=== PATIENT | female | born 1980 | race Caucasian/White ===

== ENCOUNTER 2017-04-27 18:48 | Inpatient (IN) | payer BC ==
[2017-04-27] MEDS ORDERED: Oxytocin in LR* 20 UNITS/1,000 ML BAG IVPB SCH (21:00)
[2017-04-27] MEDS ORDERED: Oxytocin in LR* 20 UNITS/1,000 ML BAG IVPB ONE (21:05)
[2017-04-27 21:11] LABS: ABS Basophils 0 10^3/ul (0-0.2); ABS Eosinophils 0 10^3/ul (0-0.6); ABS Lymphocytes 0.8 10^3/ul (1.0-4.8); ABS Monocytes 0.6 10^3/ul (0-0.8); ABS Neutrophils 5.6 10^3/ul (1.5-7.7); ABS Nucleated RBC 0 10^3/ul; Eosinophil % 0.5 % (0-6); Hematocrit 31 % (35-47); Hemoglobin 10.6 g/dl (12.0-16.0); Lymphocyte % 10.7 % (25-47); Mean Corpuscular HGB Conc 34 g/dl (31-36); Mean Corpuscular Hemoglobin 34 pg (27-31); Mean Corpuscular Volume 97 fL (80-97); Mean Platelet Volume 9 um3 (7.4-10.4); Nucleated Red Blood Cells % 0; Platelet Count 264 10^3/ul (150-450); Red Blood Count 3.16 10^6/ul (4.0-5.4); Red Cell Distribution Width 16 % (10.5-15)
[2017-04-27] MEDS ORDERED: Penicillin G Potassium IV* 5,000,000 UNITS in NS 0.9% 100 ML* 100 ML IVPB ONE (21:30)
[2017-04-27] MEDS ORDERED: MESALAMINE 500 MG PO SCH (23:45)
[2017-04-28] MEDS ORDERED: Penicillin G Potassium IV* 2,500,000 UNITS in NS 0.9% 100 ML* 100 ML IVPB SCH (01:30)
[2017-04-28] MEDS: MERCAPTOPURINE 50 MG PO SCH ×3 (04:07→20:59)
[2017-04-28] MEDS ORDERED: OBEPIDURAL* 250 ML EPIDURAL ONE (04:48)
[2017-04-28] MEDS ORDERED: Phenylephrine IV* 40 MCG/ML 10 ML SYRINGE IV PUSH PRN ×2 (05:53)
[2017-04-28] MEDS ORDERED: Famotidine TAB* 20 MG PO PRN (05:53)
[2017-04-28] MEDS ORDERED: EPHEDrine (Pressors)* 50 MG/ML VIAL IV PUSH PRN ×2 (05:53)
[2017-04-28] MEDS ORDERED: Sodium Citrate/Citric Acid* 15 ML UDC PO PRN (05:53)
[2017-04-28] MEDS ORDERED: OBEPIDURAL* 250 ML EPIDURAL SCH (06:00)
[2017-04-28] MEDS ORDERED: Dibucaine 1% 28.35 GM TUBE ONE (07:29)
[2017-04-28] MEDS ORDERED: Witch Hazel PAD* JAR ONE (07:29)
[2017-04-28] MEDS ORDERED: Methylergonovine INJ* 0.2 MG/ML 1ML AMP IM ONE (07:41)
[2017-04-28] MEDS ORDERED: Witch Hazel PAD* JAR TOPICAL PRN (07:41)
[2017-04-28] MEDS ORDERED: Ibuprofen TAB* 600 MG PO PRN (07:41)
[2017-04-28] MEDS ORDERED: Dibucaine 1% 28.35 GM TUBE PR PRN (07:41)
[2017-04-28] MEDS ORDERED: Methylergonovine INJ* 0.2 MG/ML 1ML AMP ONE (07:58)
[2017-04-28] MEDS ORDERED: Oxytocin in LR* 20 UNITS/1,000 ML BAG IVPB SCH (08:00)
[2017-04-28] MEDS ORDERED: Simethicone TAB* 80 MG TAB.CHEW PO SCH (08:30)
--- NOTE | 2017-04-28 09:07 | HP ---
Information from Mother's Record: Previous /Births Maternal Age 38 Grav 3 Para 1 SAB 1 IEA 0 LC 1 Maternal Blood Type and Rh O Positive Testing Needs/Results Gestational Age in Weeks and 39 Weeks and 6 Days Days Determined By Early Ultrasound Violence or Abuse During this No Feeding Plan Formula Planned Infant Care Provider [facility] Post-Discharge Serology/RPR Result Non-Reactive Rubella Result Immune HBsAg Result Negative HIV Result Negative GBS Culture Result Positive Significant Medical History Hx Section No Tobacco/Alcohol/Substance Use Smoking Status (MU) Never Smoked Tobacco Alcohol Use None Substance Use Type None Delivery Information/Events of Note Date of [A] 04/28/17 Time of [A] 07:14 Delivery Method [A] Spontaneous Vaginal Labor [A] Induced Did Patient attempt ? [A] N/A, No Previous C-Sectio Amniotic Fluid [A] Clear Anesthesia/Analgesia [A] CEI for Labor Level of Nursery Regular/Bedside Delivery Events of Note Pitocin During Labor,Post- Bleeding & Delivery History Maternal Blood Type and Rh: O Positive Problems During : Advanced age Problems During : ulcerative colitis on meds Sibling History: No significant sibling history Delivery Events Delivery Type: Vaginal Amniotic Fluid: Clear Intrapartal Antibiotics Indicated: Urine GBS Positive Antibiotic Treatment: GBS Specific Antibx Given > 2hrs Prior to Delivery (PCN, AMP,KEFZOL) Drug Withdrawal Risk: None Apply Hepatitis B Status/Risk: Mother HBsAg NEGATIVE With No New Risk Factors Measurements Current Weight: 67.585 kg Weight in lbs and ozs: 149 Length: 1.71 m Vitals Vital Signs: Vital Signs 04/28/17 08:23 Temperature 37.3 C Pulse Rate 60 Respiratory 22 Rate Blood Pressure 108/58 (mmHg) Physical Exam General Appearance: Alert, Active Skin Color: Normal Level of Distress: No Distress Nutritional Status: AGA Cranial Features: Normal head shape, Symmetric facial features, Normal fontanelles Eyes: Bilateral Normal, Bilateral Red Reflex Ears: Symmetrical, Normal Position, Canals Patent Oropharynx: Normal: Lips, Mouth, Gums, Uvula Neck: Normal Tone Respiratory Effort: Normal Respiratory Rate: Normal Chest Appearance: Normal, [place]ola Breast 3-4 mm Size, Symmetrical Auscultation: Bilateral Good Air Exchange Breath Sounds: NL Both Lungs Location of Apical Pulse: Normal Rhythm: Regular Heart Sounds: Normal: S1, S2 Abnormal Heart Sounds: No Murmurs, No S3, No S4 Brachial Pulses: Bilateral Normal Femoral Pulses: Bilateral Normal Umbilicus Assessment: Yes Normal Abdomen: Normal Abdomen Palpation: Liver Normal, Spleen Normal Hernia: None Anus: Patent Location of Anus: Normal Genital Appearance: Female Enlarged Nodes: None External Genitalia: Normal: Labia, Clitoris, Introitus Urethral Meatus: Normal Vagina: Normal for Gestational Age Clavicles: Normal Arms: 2 Symmetrical Extremities, Full Range of Motion Hands: 2 Hands, Symmetrical, 5 Fingers on Each Hand, Full Range of Motion Left Hip: Normal ROM Right Hip: Normal ROM Legs: 2 Symmetrical Extremities, Full Range of Motion Feet: 2 Feet, Symmetrical, Creases on 2/3 of Soles, Full Range of Motion Spine: Normal Skin Texture: Smooth, Soft Skin Appearance: No Abnormalities Neuro: Normal: [place], Sucking, Muscle Tone Cranial Nerve Exam: Cranial N. II-XII Normal Deep Tendon Reflexes: Normal: Bicep, Knee, Ankle Medications Home Medications: Home Medications Medication Instructions Recorded Confirmed Type Ferrous Sulfate [Iron] 325 mg PO DAILY 04/27/17 04/27/17 History Mercaptopurine TAB* [Purinethol 75 mg PO DAILY 04/27/17 04/27/17 History TAB*] Mesalamine CAP(NF) [Pentasa(NF)] 1,500 mg PO BID 04/27/17 04/27/17 History Vitamin TAB* 1 tab PO DAILY 04/27/17 04/27/17 History Inpatient Medications: Medications Acetaminophen (Tylenol Tab*) 650 mg PO Q4H PRN PRN Reason: PAIN Citric Acid/Sodium Citrate (Bicitra*) 15 ml PO ONCE PRN PRN Reason: DYSPEPSIA Dibucaine (Nupercainal 1% Oint*) 1 applic [place] QID PRN PRN Reason: DISCOMFORT Docusate Sodium (Colace Cap*) 100 mg PO TID MICHELLE Ephedrine Sulfate (Ephedrine Sulfate (Pressors)*) 5 mg IV PUSH Q2M PRN PRN Reason: hypotension Ephedrine Sulfate (Ephedrine Sulfate (Pressors)*) 5 mg IV PUSH Q2M PRN PRN Reason: non-reassure heart rate Famotidine (Pepcid Tab*) 20 mg PO ONCE PRN PRN Reason: DYSPEPSIA Ferrous Gluconate (Fergon Tab*) 324 mg PO BID [facility] Penicillin G Potassium 2,500, (000 units/ Sodium Chloride) 100 mls @ 200 mls/ hr IVPB Q4H [facility] Last Admin: 04/28/17 04:13 Dose: 200 mls/hr Fentanyl/Ropivacaine (Fentanyl 2 Mcg/Ml+Ropivacaine 0.1% Epidural*) 250 mls @ 0 mls/hr EPIDURAL Q24H MICHELLE; Per Protocol PRN Reason: Protocol Lactated Ringer's (Lactated Ringers 1000 Ml Bag*) 1,000 mls @ 125 mls/hr IV PER RATE MICHELLE Lactated Ringer's (Lactated Ringers 1000 Ml Bag*) 1,000 mls @ 0 mls/hr IV KVO MICHELLE PRN Reason: KVO Oxytocin (Pitocin In Lr*) 20 units in 1,000 mls @ 250 mls/hr IVPB .PER RATE MICHELLE PRN Reason: Protocol Ibuprofen (Motrin Tab*) 600 mg PO Q6H PRN PRN Reason: PAIN - MILD Mercaptopurine (Purinethol Tab*) 75 mg PO DAILY [facility] Last Admin: 04/28/17 04:07 Dose: Not Given Non-Admin Reason: Declined by Patient Mesalamine (Pentasa(Nf)) 1,500 mg PO BID [facility] Phenylephrine HCl (Neosynephrine Iv*) 40 mcg IV PUSH Q2M PRN PRN Reason: hypotension Phenylephrine HCl (Neosynephrine Iv*) 40 mcg IV PUSH Q2M PRN PRN Reason: non-reassure heart rate Simethicone (Mylicon Tab*) 80 mg PO [facility] Brittanie (Tucks*) 1 pad TOPICAL .PRN PRN PRN Reason: DISCOMFORT Results/Investigations Lab Results: 04/27/17 04/27/17 20:30 20:30 WBC 7.0 RBC 3.16 L Hgb 10.6 L Hct 31 L MCV 97 MCH 34 H MCHC 34 RDW 16 H Plt Count 264 MPV 9 Neut % (Auto) 79.1 Lymph % (Auto) 10.7 L [place] % (Auto) 9.2 H Eos % (Auto) 0.5 Baso % (Auto) 0.5 Absolute Neuts (auto) 5.6 Absolute Lymphs (auto) 0.8 L Absolute Monos (auto) 0.6 Absolute Eos (auto) 0 Absolute Basos (auto) 0 Absolute Nucleated RBC 0 Nucleated RBC % 0 Blood Type O Positive Antibody Screen Negative Assessment - Status Status: Full-term Condition: Stable Assessment: "Gibran" is a 2 hour old 40 0/7 weeker born at 3860g to a 38yo G3 now L2 mom by induced VD. Apgars 9 and 10. c/b AMA and UC on meds. c/b nuchal cord x1. GBS UA + but adequately treated during delivery. ROM 5 hrs PTD. Other labs negative. MBT O+ BBT pending. Plan for formula feeding due to mom on medications for UC. Plan for discharge Monday. Plan of Care [place] Admission to: Nursery Provided Guidance to: Mother, Father Guidance and Instruction: signs of illness, feeding schedule/plan, safety in home
[2017-04-28] MEDS: CMCS: Mesalamine CAP(NF) 500 MG CAP PO SCH ×2 (09:15→20:59)
[2017-04-28] MEDS: Docusate CAP* 100 MG PO SCH ×3 (14:28→20:58)
[2017-04-28] MEDS: Acetaminophen TAB* 325 MG PO PRN ×2 (14:32→18:12)
[2017-04-29] MEDS: Acetaminophen TAB* 325 MG PO PRN ×4 (00:03→21:02)
[2017-04-29 06:36] LABS: ABS Basophils 0.1 10^3/ul (0-0.2); ABS Eosinophils 0 10^3/ul (0-0.6); ABS Monocytes 0.7 10^3/ul (0-0.8); ABS Neutrophils 5.2 10^3/ul (1.5-7.7); ABS Nucleated RBC 0 10^3/ul; Eosinophil % 0.5 % (0-6); Hematocrit 32 % (35-47); Hemoglobin 11.4 g/dl (12.0-16.0); Lymphocyte % 14.7 % (25-47); Mean Corpuscular HGB Conc 35 g/dl (31-36); Mean Corpuscular Hemoglobin 35 pg (27-31); Mean Corpuscular Volume 98 fL (80-97); Mean Platelet Volume 8 um3 (7.4-10.4); Nucleated Red Blood Cells % 0.1; Platelet Count 232 10^3/ul (150-450); Red Blood Count 3.29 10^6/ul (4.0-5.4); Red Cell Distribution Width 16 % (10.5-15)
[2017-04-29] MEDS ORDERED: Ferrous Gluconate TAB* 324 MG TAB PO SCH (09:00)
[2017-04-29] MEDS: Docusate CAP* 100 MG PO SCH ×3 (09:17→21:02)
[2017-04-29] MEDS: CMCS: Mesalamine CAP(NF) 500 MG CAP PO SCH ×2 (09:18→21:02)
[2017-04-29 20:53] VITALS: BP 100/62
[2017-04-29] MEDS: MERCAPTOPURINE 50 MG PO SCH (21:02)
[2017-04-30] MEDS: CMCS: Mesalamine CAP(NF) 500 MG CAP PO SCH (08:09)
[2017-04-30] MEDS: Docusate CAP* 100 MG PO SCH (08:09)
[2017-04-30] MEDS: Acetaminophen TAB* 325 MG PO PRN (10:21)
== END 2017-04-30 11:48 | disposition home or self-care (01) | DRG 560 ==
LOC: MCHOBOUT 18:48 → MCHOB 20:45
PROVIDERS: ADMIT Obstetrics & Gynecology; ATTEND Obstetrics & Gynecology
PROC: 10E0XZZ Delivery of Products of Conception, External Approach (ICD-10-PCS; principal; 2017-04-30)
PROC: 3E033VJ Introduction of Other Hormone into Peripheral Vein, Percutaneous Approach (ICD-10-PCS; 2017-04-30)
PROC: 10907ZC Drainage of Amniotic Fluid, Therapeutic from Products of Conception, Via Natural or Artificial Opening (ICD-10-PCS; 2017-04-30)
PROC: 0KQM0ZZ Repair Perineum Muscle, Open Approach (ICD-10-PCS; 2017-04-30)
DX: O99.824 Streptococcus B carrier state complicating childbirth (principal); K51.90 Ulcerative colitis, unspecified, without complications; O71.5 Other obstetric injury to pelvic organs; O69.81X0 Labor and delivery complicated by cord around neck, without compression, not applicable or unspecified; Z3A.40 40 weeks gestation of pregnancy; Z37.0 Single live birth
CPT/HCPCS: 36415; 85025; 86850; 86900; 86901; A9270-GY; J2210; J2540